=== PATIENT | female | born 1990 | race Caucasian/White ===

== ENCOUNTER 2017-03-05 20:31 | Emergency (ER) | payer BC, OTHER ==
[2017-03-05] MEDS ORDERED: Ondansetron INJ* 2 MG/ML VIAL IV ONE (22:45)
[2017-03-05] MEDS ORDERED: NS 0.9% 1000 ML* 1,000 ML IV ONE (22:45)
[2017-03-05 23:01] LABS: Urine Bacteria Absent (Absent); Urine Bilirubin Negative (Negative); Urine Glucose Negative (Negative); Urine Nitrite Negative (Negative)
--- NOTE | 2017-03-05 23:02 | ED ---
puneet Arevalo Timothy, scribed for Moe Reyes MD on 03/05/17 at 2247 . GI/ HPI - HPI Summary HPI Summary: Hattie To is a 26 yo female presenting to [facility] with intermittent 7/10 peribumbilical abd pain and nausea without vomiting since 02/22/17. Pt believes she may have urinary Sx, but cannot pinpoint them. Pt states she presented to her PCP who analyzed her urine, and did not identify UTI. Her PCP recommended that she present to [facility]. She states she has been having spasms in her abdomen and when she attempts to release the spasm she feels like she will urinate. She denies any vaginal Sx including abnormal bleeding or discharge. she states ice relieves her pain and allows her to sleep. Her MHx includes migraine, seizures, syncope, childhood asthma, chronic bronchitis, PNA, scoliosis, anxiety, and anemia. Her LNMP just finished. - History of Current Complaint Chief Complaint: EDAbdPain Time Seen by Provider: 03/05/17 22:40 Stated Complaint: ABD PAIN Hx Obtained From: Patient Onset/Duration: Started Days Ago, Still Present Timing: Constant Severity: Moderate Current Severity: Moderate Pain Intensity: 7 Location of Pain: Umbilical Associated Signs and Symptoms: Positive: Nausea, Abdominal Pain, Other: - urinary Sx, unspecified. Negative: Vomiting Alleviating Factor(s): Ice - Allergy/Home Medications Allergies/Adverse Reactions: Allergies Allergy/AdvReac Type Severity Reaction Status Date / Time Gabapentin Allergy See Comment Verified 01/03/16 13:26 Latex Allergy Rash Verified 01/03/16 13:26 Sulfa Antibiotics Allergy Rash Verified 01/03/16 13:26 PMH/Surg Hx/FS Hx/Imm Hx Endocrine/Hematology History: Reports: Hx Anemia Denies: Hx Anticoagulant Therapy, Hx Diabetes, Hx Thyroid Disease Cardiovascular History: Reports: Hx Syncope Denies: Hx Hypertension, Hx Pacemaker/ICD Respiratory History: Reports: Hx Asthma - as a child, Hx Chronic Bronchitis, Hx Pneumonia Denies: Hx Chronic Obstructive Pulmonary Disease (COPD) GI History: Denies: Hx Ulcer History: Denies: Hx Renal Disease Musculoskeletal History: Reports: Hx Back Problems, Hx Scoliosis - SX W/ RODS 1.5 WKS AGO Sensory History: Denies: Hx Hearing Aid Neurological History: Reports: Hx Migraine, Hx Seizures Denies: Hx Dementia Psychiatric History: Reports: Hx Anxiety Denies: Hx Panic Disorder, Hx Substance Abuse - Surgical History Surgery Procedure, Year, and Place: Spinal Fusion (for severe scoliosis, entire spine) 2011; Removed Spinal Hardware 09/2014; Tonsillectomy 1992; [place] Teeth Extraction 2011 - Immunization History Date of Influenza Vaccine: nks Infectious Disease History: No Infectious Disease History: Denies: Hx Hepatitis, Hx Human Immunodeficiency Virus (HIV), Traveled Outside the [place] in Last 30 Days - Family History Known Family History: Positive: Cardiac Disease, Hypertension, Diabetes - Social History Alcohol Use: Occasionally Substance Use Type: Reports: None Smoking Status (MU): Never Smoked Tobacco Review of Systems Constitutional: Negative Eyes: Negative ENT: Negative Cardiovascular: Negative Respiratory: Negative Positive: Abdominal Pain, Nausea. Negative: Vomiting Positive: see HPI, other - unspecified. Negative: discharge, hematuria Musculoskeletal: Negative Skin: Negative Neurological: Negative Psychological: Normal All Other Systems Reviewed And Are Negative: Yes Physical Exam Triage Information Reviewed: Yes Vital Signs On Initial Exam: Initial Vitals Temp Pulse Resp BP Pulse Ox 98.2 F 98 15 141/83 100 03/05/17 20:42 03/05/17 20:42 03/05/17 20:42 03/05/17 20:42 03/05/17 20:42 Vital Signs Reviewed: Yes Appearance: Positive: Well-Appearing, No Pain Distress Skin: Positive: Warm Head/Face: Positive: Normal Head/Face Inspection Eyes: Positive: TRISTIAN ENT: Positive: Hearing grossly normal Neck: Positive: Supple Respiratory/Lung Sounds: Positive: Breath Sounds Present Cardiovascular: Positive: RRR Abdomen Description: Positive: No Organomegaly, Soft, Other: - mild lower abd tenderness Bowel Sounds: Positive: Present Musculoskeletal: Positive: Strength/ROM Intact Neurological: Positive: Alert, Oriented to Person Place, Time Diagnostics - Vital Signs Vital Signs Temp Pulse Resp BP Pulse Ox 03/05/17 21:39 97.9 F 88 14 116/68 100 03/05/17 20:44 98.2 F 101 15 141/83 100 03/05/17 20:42 98.2 F 98 15 141/83 100 - Laboratory Result Diagrams: 03/05/17 23:30 03/05/17 23:30 Lab Statement: Any lab studies that have been ordered have been reviewed, and results considered in the medical decision making process. - CT A/P CT Interpretation: No Acute Changes - Spinal fixation rods noted over the thoracic and lumbar spine. There is no free air. Likely incidental 1 cm cyst noted in the right lobe of the liver. There are no obivous gallstones. There is no hydronephrosis. There are no renal calculi. There is a moderate amount of stool noted in the colon. There is no evidence of intestinal obstruction. The appendix is not identified. There is no pericecal or RLQ inflammatory process. Urinary bladder is partially decompressed. There are no bladder calculi. The uterus is retroverted. Small cul-de-sac effusion noted. CT Interpretation Completed By: Radiologist - imaging donation worker Re-Evaluation - Re-Evaluation First Eval Re-Evaluation Time: 02:28 Change: Improved Comment: Pt was informed of lab and imaging studies, Pt is agreeable to be discharged. GIGU Course/Dx - Course Assessment/Plan: Hattie Huddleston is a 26 yo female presenting to [facility] with intermittent 7/10 periumbilical abd pain with nausea without vomiting since . She is not requesting pain medication at this time. In the ED she was given IV fluids and Zofran to control her nausea. Her CT A/P suggested no acute disease. After clinical examination and review of her CT A/P and lab work, she will be discharged home with abdominal pain and appropriate instructions. - Diagnoses Provider Diagnoses: Abdominal pain Discharge - Discharge Plan Condition: Stable Disposition: HOME Patient Education Materials: Diet for Ulcers and Gastritis (ED), Acute Abdominal Pain (ED) Referrals: No Primary Care Phys,NOPCP [Primary Care Provider] - Rivas Barnard MD [Medical Doctor] - 2 Days Additional Instructions: Please follow up with Dr. Barnard regarding your visit to the emergency department today. Return to the emergency department with any new or recurring symptoms. The documentation as recorded by the puneet simms Timothy accurately reflects the service I personally performed and the decisions made by , Moe Reyes MD.
[2017-03-06] LABS: Hematocrit 40 % (35-47); Hemoglobin 13.6 g/dl (12.0-16.0); Mean Corpuscular HGB Conc 34 g/dl (31-36); Mean Corpuscular Hemoglobin 31 pg (27-31); Mean Corpuscular Volume 93 fL (80-97); Mean Platelet Volume 8 um3 (7.4-10.4); Red Blood Count 4.35 10^6/ul (4.0-5.4); Red Cell Distribution Width 13 % (10.5-15); White Blood Count 4.6 10^3/ul (3.5-10.8)
[2017-03-06 00:01] LABS: ALT 10 U/L (7-52); AST 15 U/L (13-39); Albumin 4.5 g/dL (3.2-5.2); Alkaline Phosphatase 50 U/L (34-104); Anion Gap 6 mmol/L (2-11); Blood Urea Nitrogen 12 mg/dL (6-24); C Reactive Protein 1.01 mg/L (< 5.00); CO2 Carbon Dioxide 28 mmol/L (22-32); Calcium 9.7 mg/dL (8.6-10.3); Chloride 105 mmol/L (101-111); EGFR African American 146.9 (>60); EGFR Non-African American 114.2 (>60); Globulin 2.7 g/dL (2-4); Glucose 86 mg/dL (70-100); Lipase 20 U/L (11.0-82.0); Potassium 3.4 mmol/L (3.5-5.0); Sodium 139 mmol/L (133-145); Total Protein 7.2 g/dL (6.4-8.9)
[2017-03-06] MEDS ORDERED: Iohexol 300* (CONTRAST) 10 ML SDV IV ONE (00:33)
[2017-03-06 02:41] VITALS: BP 110/68
--- NOTE | 2017-03-06 07:47 | RAD ---
INDICATION: Abdominal pain COMPARISON: None TECHNIQUE: Axial source images were obtained from the hemidiaphragms to the symphysis pubis following administration of oral and intravenous contrast. 80 mL Omnipaque 300 was utilized. Coronal and sagittal reconstructed images were acquired. The images are degraded by the presence of Ansari. Lung bases: The lung bases are clear. Liver: The liver is normal in size. There are no masses. There is no ductal dilatation. Gallbladder: There are no calcified gallstones. There is no evidence of wall thickening or pericholecystic fluid. Spleen: The spleen is normal in size. There are no masses. Pancreas: There is no focal pancreatic mass or ductal dilatation. Adrenal glands: Very limited evaluation. No masses identified. Kidneys: No gross abnormalities. Prompt perfusion and excretion. Limited evaluation due to beam hardening artifact. Adenopathy: There is no evidence of adenopathy by size criteria. Fluid collections: There is small amount fluid in the cul-de-sac. Vessels:There are no significant atherosclerotic changes involving the aorta. There is no focal aneurysm. The iliac vessels are normal in caliber. The IVC appears normal. GI tract: There are no acute CT bowel findings. There is no obstruction. The stomach and small bowel appear normal. The lower GI tract is normal. The cecum, ileocecal valve, and terminal ileum appear normal. The appendix is not visualized. There is no pericecal inflammatory change. Pelvic organs: The uterus and adnexa appear normal Bladder: There are no bladder masses. Abdominal and pelvic soft tissues: The extraperitoneal abdominal and pelvic soft tissues appear normal.. Osseous structures: Scoliotic deformity with presence of Ansari rods. Other: None IMPRESSION: Mildly Limited examination due to artifact from Ansari rods. No mass or inflammatory changes. Nonvisualization of the appendix. Small amount of free fluid in the cul-de-sac may be physiologic in origin.
== END 2017-03-06 02:39 | disposition home or self-care (01) ==
LOC: ED 20:31
DX: R10.9 Unspecified abdominal pain (principal); R11.0 Nausea
CPT/HCPCS: 36415; 74177; 80053; 81003; 81015; 83605; 83690; 83735; 84702; 85025; 86140; 96374; 99282; J2405; Q9967

== ENCOUNTER 2017-06-26 19:41 | Emergency (ER) | payer OTHER ==
[2017-06-26] MEDS ORDERED: ceFAZolin 1 GM ADVAN(*) 1 GM in NS 0.9% 50 ML* 50 ML IVPB ONE (21:02)
--- NOTE | 2017-06-26 21:45 | RAD ---
INDICATION: Back pain COMPARISON: CT lumbar spine September 01, 2015 TECHNIQUE: Noncontrast axial source images was performed from the thoracolumbar junction to the sacrum. Coronal and and sagittal reformatted images were generated. FINDINGS: Vertebrae: There is no fracture or acute focal bony lesion. There is Ansari katie placement. The radiographic appearance unchanged. There is no evidence of hardware failure. Alignment: There is minor levoscoliosis, unchanged. Central Canal: Evaluation of the central and exiting nerve roots is very limited due to beam hardening artifact. Soft tissues: Limited evaluation. Tubal soft tissues due to beam hardening artifact. Other: None IMPRESSION: There is Ansari katie placement which produces significant beam hardening artifact. There are no acute bony findings.
--- NOTE | 2017-06-26 22:26 | ED ---
Back Pain - HPI Summary HPI Summary: 27F presents with acute on chronic back pain. She states the pain recently has been going down right leg and has inc in intensity which is new. She has been taking lyrica but stopped mobic because was causing urinary retention. She denies any loss of bowel or bladder or saddle anaesthesia. She has multiple rods placed in her back from multiple surgeries. She is currently seeing an ortho doctor from [facility] who is suppose to go nerve conduction studies. She does not want any new medication. - History of Current Complaint Chief Complaint: EDBackInjuryPain Stated Complaint: RIGHT LEG PAIN Time Seen by Provider: 06/26/17 20:43 Hx Last Menstrual Period: 08/14/15 Pain Intensity: 10 - Allergies/Home Medications Allergies/Adverse Reactions: Allergies Allergy/AdvReac Type Severity Reaction Status Date / Time Gabapentin Allergy See Comment Verified 06/26/17 19:48 Latex Allergy Rash Verified 06/26/17 19:48 Sulfa Antibiotics Allergy Rash Verified 06/26/17 19:48 PMH/Surg Hx/FS Hx/Imm Hx Endocrine/Hematology History: Reports: Hx Anemia Denies: Hx Anticoagulant Therapy, Hx Diabetes, Hx Thyroid Disease Cardiovascular History: Reports: Hx Syncope Denies: Hx Hypertension, Hx Pacemaker/ICD Respiratory History: Reports: Hx Asthma - as a child, Hx Chronic Bronchitis, Hx Pneumonia Denies: Hx Chronic Obstructive Pulmonary Disease (COPD) GI History: Denies: Hx Ulcer History: Denies: Hx Dialysis, Hx Renal Disease Musculoskeletal History: Reports: Hx Back Problems, Hx Scoliosis - SX W/ RODS 1.5 WKS AGO Sensory History: Denies: Hx Hearing Aid Neurological History: Reports: Hx Migraine, Hx Seizures Denies: Hx Dementia Psychiatric History: Reports: Hx Anxiety Denies: Hx Panic Disorder, Hx Substance Abuse - Surgical History Surgery Procedure, Year, and Place: Spinal Fusion (for severe scoliosis, entire spine) 2011; Removed Spinal Hardware 09/2014; Tonsillectomy 1992; [place] Teeth Extraction 2011 - Immunization History Date of Influenza Vaccine: nks Infectious Disease History: No Infectious Disease History: Denies: Hx Hepatitis, Hx Human Immunodeficiency Virus (HIV), Traveled Outside the [place] in Last 30 Days - Family History Known Family History: Positive: Cardiac Disease, Hypertension, Diabetes - Social History Alcohol Use: Occasionally Substance Use Type: Reports: None Smoking Status (MU): Never Smoked Tobacco Review of Systems Negative: Fever Negative: Chest Pain Negative: Shortness Of Breath Positive: Myalgia - back pain All Other Systems Reviewed And Are Negative: Yes Physical Exam Triage Information Reviewed: Yes Vital Signs On Initial Exam: Initial Vitals Temp Pulse Resp BP Pulse Ox 98.2 F 89 16 122/80 98 06/26/17 19:43 06/26/17 19:43 06/26/17 19:43 06/26/17 19:43 06/26/17 19:43 Vital Signs Reviewed: Yes Appearance: Positive: Well-Appearing Skin: Positive: Warm, Dry Head/Face: Positive: Normal Head/Face Inspection Eyes: Positive: Normal, Conjunctiva Clear Respiratory/Lung Sounds: Positive: Clear to Auscultation, Breath Sounds Present Cardiovascular: Positive: Normal, RRR Musculoskeletal: Positive: Limited @ - back due to pain, Other - tender across back, pos SLR left Diagnostics - Vital Signs Vital Signs Temp Pulse Resp BP Pulse Ox 06/26/17 20:40 98.2 F 89 16 122/80 99 06/26/17 19:43 98.2 F 89 16 122/80 98 - Laboratory Lab Statement: Any lab studies that have been ordered have been reviewed, and results considered in the medical decision making process. Back Pain Course/Dx - Course Course Of Treatment: 27F presents with acute on chronic back pain. She states the pain recently has been going down right leg and has inc in intensity which is new. She has been taking lyrica but stopped mobic because was causing urinary retention. She denies any loss of bowel or bladder or saddle anaesthesia. She has multiple rods placed in her back from multiple surgeries. She is currently seeing an ortho doctor from [facility] who is suppose to go nerve conduction studies. She does not want any new medication. discussed with patient will get CT. CT shows no acute deepa changes. patient understands and agrees with plan. - Diagnoses Differential Diagnosis/HQI/PQRI: Positive: Fracture, Herniated Disc, Strain, Sprain Provider Diagnoses: Back pain Discharge - Discharge Plan Condition: Good Disposition: HOME Patient Education Materials: Back Pain (ED) Referrals: Marcelino LUX,Giles Baker [Primary Care Provider] - Additional Instructions: Follow up with ortho as scheduled Return to ED if develop any new or worsening symptoms
[2017-06-26 22:31] LABS: Urine Bilirubin Negative (Negative); Urine Glucose Negative (Negative); Urine Nitrite Negative (Negative)
[2017-06-26 22:36] VITALS: BP 127/84
== END 2017-06-26 22:36 | disposition home or self-care (01) ==
LOC: ED 19:41
DX: M54.9 Dorsalgia, unspecified (principal); M79.604 Pain in right leg
CPT/HCPCS: 72131; 81003; 99282

== ENCOUNTER 2017-07-20 09:19 | Emergency (ER) | payer OTHER ==
[2017-07-20 10:26] LABS: Hematocrit 40 % (35-47); Hemoglobin 13.7 g/dl (12.0-16.0); Mean Corpuscular HGB Conc 34 g/dl (31-36); Mean Corpuscular Hemoglobin 32 pg (27-31); Mean Corpuscular Volume 94 fL (80-97); Mean Platelet Volume 8 um3 (7.4-10.4); Red Cell Distribution Width 12 % (10.5-15); White Blood Count 3.9 10^3/ul (3.5-10.8)
--- NOTE | 2017-07-20 10:29 | ED ---
- HPI Summary HPI Summary: 27 female presents to ED with complaints of vaginal bleeding and some mild lower abdominal cramping that began this morning around 7am. Patient states she is 6 weeks . She had a positive blood test. States the bleeding is worse when urinating and admits to clots. "Feels like her period". Has not soaked through 1 pad since 7am yet. Denies any other discharge or symptoms. States she has not been on control or been taking precautions for 7 years and has never been . No known conditions of being infertile or reproductive issues. Admits to having bladder issues (spasms, burning, frequency ) that have been worked up by urologist without known cause. Had symptoms yesterday of bladder issues. Has been taking tylenol for pain and discomfort in replace of her lyrica and meloxicam that she used to take daily for her chronic back problems. PMHx includes back fusion from severe scoliosis but no other medical problems. Denies feeling lightheaded, dizzy or no radiation of abdominal pain. OBGYN: rosa kevin. - History of Current Complaint Chief Complaint: EDVaginalBleeding Stated Complaint: 6WKS PREG/VAG BLEEDING Time Seen by Provider: 07/20/17 09:31 Hx Obtained From: Patient Chief Complaint: Concern for Embryonic Dem, Pain, Vaginal Bleeding Onset/Duration: Started Hours Ago - 7am, Still Present Timing: Constant Severity: Mild Current Severity: Mild Pain Intensity: 2 Location of Pain: Suprapubic Character: Cramping Aggravating Factors: Urination Alleviating Factors: Nothing Associated Signs and Symptoms: Positive: Vaginal Bleeding or Discharge - Assessment Hx Now: Yes Vaginal Bleeding Amount: Medium History of STI/STD: No - Risk Factors Ovarian Torsion Risk Factor: Reproductive Age - Allergies/Home Medications Allergies/Adverse Reactions: Allergies Allergy/AdvReac Type Severity Reaction Status Date / Time Gabapentin Allergy See Comment Verified 07/20/17 09:26 Latex Allergy Rash Verified 07/20/17 09:26 Sulfa Antibiotics Allergy Rash Verified 07/20/17 09:26 PMH/Surg Hx/FS Hx/Imm Hx Endocrine/Hematology History: Reports: Hx Anemia Denies: Hx Anticoagulant Therapy, Hx Diabetes, Hx Thyroid Disease Cardiovascular History: Reports: Hx Syncope Denies: Hx Hypertension, Hx Pacemaker/ICD Respiratory History: Reports: Hx Asthma - as a child, Hx Chronic Bronchitis, Hx Pneumonia Denies: Hx Chronic Obstructive Pulmonary Disease (COPD) GI History: Denies: Hx Ulcer History: Denies: Hx Dialysis, Hx Renal Disease Musculoskeletal History: Reports: Hx Back Problems, Hx Scoliosis - SX W/ RODS 1.5 WKS AGO Sensory History: Denies: Hx Hearing Aid Neurological History: Reports: Hx Migraine, Hx Seizures Denies: Hx Dementia Psychiatric History: Reports: Hx Anxiety Denies: Hx Panic Disorder, Hx Substance Abuse - Surgical History Surgery Procedure, Year, and Place: Spinal Fusion (for severe scoliosis, entire spine) 2011; Removed Spinal Hardware 09/2014; Tonsillectomy 1992; [place] Teeth Extraction 2011 - Immunization History Date of Influenza Vaccine: nks Immunizations Up to Date: Yes Infectious Disease History: Denies: Hx Hepatitis, Hx Human Immunodeficiency Virus (HIV), Traveled Outside the [place] in Last 30 Days - Family History Known Family History: Positive: Cardiac Disease, Hypertension, Diabetes - Social History Alcohol Use: Occasionally Substance Use Type: Reports: None Smoking Status (MU): Never Smoked Tobacco Review of Systems Constitutional: Negative Cardiovascular: Negative Respiratory: Negative Positive: Abdominal Pain Positive: other - vaginal bleeding Musculoskeletal: Negative All Other Systems Reviewed And Are Negative: Yes Physical Exam - Physical Exam Triage Information Reviewed: Yes Vital Signs On Initial Exam: temp: 98.3 HR:87 BP: 141/80 O2:99 Resp:16 Vital Signs Reviewed: Yes Appearance: Positive: Well-Appearing - appears sad, tearful, No Pain Distress, Well-Nourished Skin: Positive: Warm, Skin Color Reflects Adequate Perfusion, Dry. Negative: Cold, Numb, Cyanosis @, Pale, Erythema @ Head/Face: Positive: Normal Head/Face Inspection Eyes: Positive: EOMI, TRISTIAN, Conjunctiva Clear ENT: Positive: Hearing grossly normal, Pharynx normal Neck: Positive: Supple, Nontender Respiratory/Lung Sounds: Positive: Clear to Auscultation, Breath Sounds Present. Negative: Rales, Rhonchi, Wheezes Cardiovascular: Positive: Normal, RRR, Pulses are Symmetrical in both Upper and Lower Extremities. Negative: Murmur, Rub Abdomen Description: Positive: No Organomegaly, Soft, Other: - suprapubic tenderness on palpatinon, mild discomfort. patient deferred pelvic exam due to heavy bleeding and discomfort. Negative: Bruit, CVA Tenderness (R), CVA Tenderness (L), Distended, Guarding, McBurney's Point Tenderness, Peritoneal Signs, Pulsatile Mass Bowel Sounds: Positive: Present Musculoskeletal: Positive: Normal, Strength/ROM Intact. Negative: Pain @ Neurological: Positive: Normal, Sensory/Motor Intact, Alert, Oriented to Person Place, Time Psychiatric: Positive: Normal Diagnostics - Vital Signs Vital Signs Temp Pulse Resp BP Pulse Ox 07/20/17 09:33 98.3 F 72 18 118/63 96 07/20/17 09:22 98.3 F 87 16 141/80 99 - Laboratory Result Diagrams: 07/20/17 10:15 07/20/17 10:15 Lab Statement: Any lab studies that have been ordered have been reviewed, and results considered in the medical decision making process. - Ultrasound No standard instances Ultrasound Interpretation: Positive (See Comments) - NO INTRAUTERINE GESTATION IS IDENTIFIED. THE DIFFERENTIAL INCLUDES EARLY INTRAUTERINE GESTATION, MISSED , OR ECTOPIC . RECOMMEND CORRELATION WITH SERIAL BETA-HCG LEVELS AND FOLLOW-UP IMAGING. 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 no need for pain management at this time, she is comfortable, patient felt ok. blood work, HCG, and U/S obtained. appears patient is suffering from a missed . patient states positive HCG level was taken at PCP 4 days ago and in normal range. educated on miscarriages, use of pads and follow up with OBGYN to repeats US and HCG. Patient requested OCP however encourage to have repeat US and HCG with OBGYN before beginning. Patient deferred pelvic exam. may continue tylenol for pain and discomfort. Aware of worsening signs and symptoms. - Differential Diagnosis/HQI/PQRI: Spontaneous , Threatened , Ectopic , Intrauterine , UTI, Vaginal Bleeding - Diagnoses Provider Diagnoses: Vaginal bleeding in patient at less than 20 weeks gestation, Miscarriage Discharge - Discharge Plan Condition: Stable Disposition: HOME Patient Education Materials: Miscarriage (ED) Referrals: Marcelino LUX,Giles Baker [Primary Care Provider] - Additional Instructions: Please follow up for repeat HCG and ultrasound at OBGYN or PCP. Continue use of tylenol for pain. Also recommend use of heating pads. Continue use of pads for bleeding. Drink plenty of fluids and get plenty of rest. Recommend being around supportive family members and friends to help you through this. If you have worsening signs and symptoms such as lightheaded, weakness, increased intensity of pain that is unbearable or hemorrhaging please seek medical attention immediately.
[2017-07-20 10:41] LABS: Albumin 4.6 g/dL (3.2-5.2); BUN/Creatinine Ratio 17.7 (8-20); Calcium 10.2 mg/dL (8.6-10.3); EGFR African American 148.5 (>60); EGFR Non-African American 115.5 (>60); Globulin 2.5 g/dL (2-4); Total Bilirubin 0.7 mg/dL (0.2-1.0); Total Protein 7.1 g/dL (6.4-8.9)
--- NOTE | 2017-07-20 11:28 | RAD ---
HISTORY: Abdominal cramping, vaginal bleeding, hCG level of 10 COMPARISONS: None TECHNIQUE: Multiple transverse and longitudinal ultrasound images were obtained of the pelvis using grayscale and color Doppler imaging using the endovaginal transducer. FINDINGS: UTERUS: The uterus is normal in shape, size, contour, and echotexture. Cervical nabothian cysts are noted. ENDOMETRIUM: The endometrial stripe is smooth. The endometrium measures 1.1 cm in thickness. No intrauterine gestation is identified. CUL-DE-SAC: There is a small amount of simple fluid within the cul-de-sac. This may be physiologic in a reproductive age female. RIGHT OVARY: The right ovary measures 2.7 x 1.5 x 2.5 cm. A corpus luteum body is noted. LEFT OVARY: The left ovary measures 2.2 x 1.8 x 2.4 cm. BLADDER: The bladder is not well visualized. OTHER: None IMPRESSION: NO INTRAUTERINE GESTATION IS IDENTIFIED. THE DIFFERENTIAL INCLUDES EARLY INTRAUTERINE GESTATION, MISSED , OR ECTOPIC . RECOMMEND CORRELATION WITH SERIAL BETA-HCG LEVELS AND FOLLOW-UP IMAGING.
[2017-07-20 13:29] VITALS: BP 101/63
== END 2017-07-20 13:28 | disposition home or self-care (01) ==
LOC: ED 09:19
DX: O03.9 Complete or unspecified spontaneous abortion without complication (principal); Z88.2 Allergy status to sulfonamides
CPT/HCPCS: 36415; 76817; 80053; 83605; 84702; 85025; 85610; 85730; 99283

== ENCOUNTER 2018-09-25 14:03 | Emergency (ER) | payer MEDICARE, OTHER ==
[2018-09-25 15:20] VITALS: BP 144/50
--- NOTE | 2018-09-25 17:34 | UC ---
Complaint Female HPI - HPI Summary HPI Summary: Patient has a history of chronic pelvic pain. 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 States that for the past 2 days has had a different kind of urinary burning and persistent pelvic muscle spasm. No fever. No back pain more than her baseline. No nausea. States her periods are very heavy but regular. She does complain of painful intercourse. Has been with the same male partner for over 8 years. Unknown if any fertility issues as they have not tried to become . - History Of Current Complaint Chief Complaint: UCGU Stated Complaint: URINARY ISSUE Time Seen by Provider: 09/25/18 17:05 Hx Obtained From: Patient Hx Last Menstrual Period: [id number] Onset/Duration: Gradual Onset, Lasting Days, Still Present Timing: Constant Severity Initially: Moderate Severity Currently: Moderate Pain Intensity: 3 Pain Scale Used: 0-10 Numeric Character: Burning Aggravating Factor(s): Urination Alleviating Factor(s): Nothing Associated Signs And Symptoms: Positive: Back Pain. Negative: Vaginal Bleeding/ Discharge, Vaginal Discharge - Allergies/Home Medications Allergies/Adverse Reactions: Allergies Allergy/AdvReac Type Severity Reaction Status Date / Time MS Gabapentin [Gabapentin] Allergy See Comment Verified 07/20/17 09:26 MS Latex [Latex] Allergy Rash Verified 07/20/17 09:26 MS Sulfa Antibiotics Allergy Rash Verified 07/20/17 09:26 [Sulfa Antibiotics] Home Medications: Home Medications L.acidoph,Paracasei, B.lactis [Probiotic] 1 each PO DAILY 09/25/18 [History Confirmed 09/25/18] Multivitamin [Multivitamins] 1 cap PO DAILY 09/25/18 [History Confirmed 09/25/18 ] PMH/Surg Hx/FS Hx/Imm Hx Respiratory History: Asthma Other GI/ History: CHRONIC PELVIC PAIN Neurological History: Migraine Other History Of: Negative For: Anticoagulant Therapy - Surgical History Surgical History: Yes Surgery Procedure, Year, and Place: Spinal Fusion (for severe scoliosis, entire spine) 2011; Removed Spinal Hardware 09/2014; Tonsillectomy 1992; [place] Teeth Extraction 2011 - Family History Known Family History: Positive: Cardiac Disease, Hypertension, Diabetes - Social History Alcohol Use: None Substance Use Type: None Smoking Status (MU): Never Smoked Tobacco Review of Systems Constitutional: Negative Respiratory: Negative Cardiovascular: Negative Gastrointestinal: Abdominal Pain Genitourinary: Dysuria, Other - pelvic muscle spasm All Other Systems Reviewed And Are Negative: Yes Physical Exam Triage Information Reviewed: Yes Appearance: Well-Appearing, No Pain Distress, Well-Nourished Vital Signs: Initial Vital Signs Temp 98.8 F 09/25/18 15:14 Pulse 91 09/25/18 15:14 Resp 16 09/25/18 15:14 BP 144/50 09/25/18 15:14 Pulse Ox 100 09/25/18 15:14 Laboratory Tests 09/25/18 15:40 POC Urine Color Yellow POC Urine Clarity Clear POC Urine pH 6.5 POC Ur Specif [place] <= 1.005 L POC Urine Protein Negative POC Ur Glucose (UA) Negative POC Urine Ketones Negative POC Urine Blood Negative POC Urine Nitrite Negative POC Urine Bilirubin Negative POC Urine Urobilinogen 0.2 POC U Leukocyte Esteras Negative Vital Signs Reviewed: Yes Eyes: Positive: Conjunctiva Clear ENT: Positive: Hearing grossly normal Neck: Positive: Supple Respiratory: Positive: No respiratory distress, No accessory muscle use Cardiovascular: Positive: Pulses Normal Abdomen Description: Positive: Soft, Other: - suprapubic tenderness. Negative: CVA Tenderness (R), CVA Tenderness (L), Distended, Guarding Pelvic Exam: Positive: External Exam Normal, Speculum Exam Normal - NABOTHIAN CYSTS ON CERVIX, No Cerv. Motion Tender, No Masses, Discharge - MODERATE THICK WHITE D/C. NO ODOR Musculoskeletal: Positive: No Edema Neurological: Positive: Alert Psychological: Positive: Age Appropriate Behavior Skin: Negative: rashes Complaint Female Dx - Differential Dx/Diagnosis Provider Diagnoses: CHRONIC PELVIC PAIN Discharge - Sign-Out/Discharge Documenting (check all that apply): Patient Departure All imaging exams completed and their final reports reviewed: No Studies - Discharge Plan Condition: Stable Disposition: HOME Patient Education Materials: Pelvic Pain in Women (ED) Referrals: Marcelino LUX,Giles Baker [Primary Care Provider] - If Needed Additional Instructions: UNCLEAR ETIOLOGY OF YOUR SYMPTOMS TODAY. URINE TEST WAS NEGATIVE FOR INFECTION. WE WILL SEND IT FOR FULL CULTURE TO ENSURE THERE IS NO INFECTIOUS PROCESS THERE. PELVIC EXAM WAS ALSO UNREMARKABLE. SWABS SENT FOR VAGINITIS. WE WILL CALL YOU IF ANY ABNORMAL RESULTS. I RECOMMEND YOU FOLLOW-UP WITH YOUR URO-UNDER SEAL OPERATOR FOR FURTHER EVALUATION OF YOUR SYMPTOMS. CONSIDER DIRECTLY ADDRESSING POSSIBILITY OF ENDOMETRIOSIS. GO TO THE ED WITHOUT FAIL IF YOU DEVELOP WORSENING PAIN, FEVER, AILIN BLOOD IN THE URINE OR ANY OTHER CONCERNING SYMPTOMS. - Billing Disposition and Condition Condition: STABLE Disposition: Home
== END 2018-09-25 18:00 | disposition home or self-care (01) ==
LOC: UCEAST 14:03
DX: R10.2 Pelvic and perineal pain (principal); G89.29 Other chronic pain; R30.9 Painful micturition, unspecified; Z91.040 Latex allergy status; Z88.2 Allergy status to sulfonamides; Z88.8 Allergy status to other drugs, medicaments and biological substances
CPT/HCPCS: 81003; 87086; 87480; 87510; 87660; 99212; G0463

== ENCOUNTER → 2019-01-29 15:43 | Emergency (ER) | payer MEDICAID, MEDICARE ==
--- NOTE | 2019-01-29 16:59 | ED ---
Back Pain - HPI Summary HPI Summary: Pt. is a 28 y.o female who presents to the ER for low back pain x several days. Pt. notes she has a hx of scoliosis with surgical correction. Pt. states she was having some increased low back this week and saw a chiropractor. Pt. states the night of manipulation she developed worsening low back pain. Pt. states pain is as painful as after her remote surgery. Pain radiates into left leg. Denies numbness, tingling or weakness, bowel or bladder incontinence or retention. Denies decreased sensation to rectal region. Pt. has been taking motrin and tylenol. She has been apply heat and ice. Pt. also notes that she developed a rash to her left lower back after injury. No other past medical hx. Sxs are moderate in severity. Movement makes sxs worse. Nothing makes sxs better. - History of Current Complaint Chief Complaint: EDBackInjuryPain Stated Complaint: BACK PAIN PER PT Time Seen by Provider: 01/29/19 16:31 Hx Obtained From: Patient Hx Last Menstrual Period: [id number] Pain Intensity: 8 - Allergies/Home Medications Allergies/Adverse Reactions: Allergies Allergy/AdvReac Type Severity Reaction Status Date / Time MS Gabapentin [Gabapentin] Allergy See Comment Verified 01/29/19 15:49 MS Latex [Latex] Allergy Rash Verified 01/29/19 15:49 MS Sulfa Antibiotics Allergy Rash Verified 01/29/19 15:49 [Sulfa Antibiotics] Home Medications: Home Medications Meloxicam 1 tab PO DAILY PRN 01/29/19 [History Confirmed 01/29/19] PMH/Surg Hx/FS Hx/Imm Hx Previously Healthy: Yes Endocrine/Hematology History: Reports: Hx Anemia Denies: Hx Anticoagulant Therapy, Hx Diabetes, Hx Thyroid Disease Cardiovascular History: Reports: Hx Syncope Denies: Hx Hypertension, Hx Pacemaker/ICD Respiratory History: Reports: Hx Asthma - as a child, Hx Chronic Bronchitis, Hx Pneumonia Denies: Hx Chronic Obstructive Pulmonary Disease (COPD) GI History: Denies: Hx Ulcer History: Denies: Hx Dialysis, Hx Renal Disease Musculoskeletal History: Reports: Hx Back Problems, Hx Scoliosis - SX W/ RODS 1.5 WKS AGO Sensory History: Denies: Hx Hearing Aid Neurological History: Reports: Hx Migraine, Hx Seizures Denies: Hx Dementia Psychiatric History: Reports: Hx Anxiety Denies: Hx Panic Disorder, Hx Substance Abuse - Surgical History Surgery Procedure, Year, and Place: Spinal Fusion (for severe scoliosis, entire spine) 2011; Removed Spinal Hardware 09/2014; Tonsillectomy 1992; [place] Teeth Extraction 2011 - Immunization History Date of Influenza Vaccine: nks Infectious Disease History: No Infectious Disease History: Denies: Hx Hepatitis, Hx Human Immunodeficiency Virus (HIV), Traveled Outside the [place] in Last 30 Days - Family History Known Family History: Positive: Cardiac Disease, Hypertension, Diabetes - Social History Occupation: Disabled Lives: With Family Alcohol Use: None Substance Use Type: Reports: None Smoking Status (MU): Never Smoked Tobacco Review of Systems Constitutional: Negative Negative: Fever, Chills Gastrointestinal: Negative Negative: Abdominal Pain Genitourinary: Negative Negative: burning, dysuria, flank pain Positive: Other - low back pain Positive: Rash Neurological: Negative Negative: Weakness, Paresthesia, Numbness All Other Systems Reviewed And Are Negative: Yes Physical Exam Triage Information Reviewed: Yes Vital Signs On Initial Exam: Initial Vitals Temp Pulse Resp BP Pulse Ox 99.0 F 106 16 125/69 100 01/29/19 15:46 01/29/19 15:46 01/29/19 15:46 01/29/19 15:46 01/29/19 15:46 Vital Signs Reviewed: Yes Appearance: Positive: Well-Appearing - Pt. sitting on bed, appears uncomfortable but notoxic. SO present. Skin: Positive: Warm, Dry Head/Face: Positive: Normal Head/Face Inspection Eyes: Positive: Normal, EOMI Neck: Positive: Supple Musculoskeletal: Positive: Other - 5/5 strength in bilateral LEs with flexion and dorsiflexion. Postive straight leg bilaterally. Midline lumbar tenderness noted. Noted over left lateral low back there is a faint pinpoint erythematous papular rash. It is not painful to touch. It does not ta. No vesicles or blisters. Does not appear to be petechiae. Neurological: Positive: Normal, CN Intact II-III Psychiatric: Positive: Affect/Mood Appropriate Diagnostics - Vital Signs Vital Signs Temp Pulse Resp BP Pulse Ox 01/29/19 15:46 99.0 F 106 16 125/69 100 - Laboratory Lab Statement: Any lab studies that have been ordered have been reviewed, and results considered in the medical decision making process. Back Pain Course/Dx - Course Course Of Treatment: Patient presenting for worsening low back pain after manipulation a few days ago. Patient is concerned her hardware may have moved. She is no neurological deficits or evidence of cauda equina syndrome. Patient also has a rash to her left lower back that occurred after injury. Rash appears most consistent with a dermatitis secondary to heating pad. Given history of surgery and recent injury we'll obtain CT scan for further evaluation. CT per radiology: IMPRESSION: Fusion of at least T12-L4 level more superior fusion is likely present and not. imaged. No evidence of definitive bony injury is noted. No spinal canal stenosis is noted. Overall exam appears to be unchanged from previous exam. Results discussed with pt. She notes she has been rotating tylenol and motrin and has been having a very hard time sleeping secondary to pain. Given exacerbation or pain will rx a short course of ultram. Advised to f.u with her ortho. doctor if pain persist. Advised to avoid apply direct heat or ice to back. To return to ER if symptoms change or worsen. pt. understands and agrees wiht plans. - Diagnoses Differential Diagnosis/HQI/PQRI: Positive: Fracture, Herniated Disc, Strain, Sprain Provider Diagnoses: Lumbar strain, Dermatitis, Rash Discharge - Sign-Out/Discharge Documenting (check all that apply): Patient Departure Patient Received Moderate/Deep Sedation with Procedure: No - Discharge Plan Condition: Good Disposition: HOME Prescriptions: traMADol TAB* [Ultram*] 50 mg PO Q6HR PRN #8 tab MDD 4 PRN Reason: Pain Patient Education Materials: Low Back Strain (ED), Dermatitis (ED) Referrals: Giles Benson MD [Primary Care Provider] - Additional Instructions: Schedule a close follow up appointment with your PCP and neurosurgeon Apply over the counter hydrocortisone cream to rash Avoid apply ice or heat over rash or directly to skin Continue rotation of motrin and tylenol Return to ER if symptoms change or worsen - Billing Disposition and Condition Condition: GOOD Disposition: Home
[2019-01-29 18:51] VITALS: BP 115/89
== END | disposition home or self-care (01) ==
LOC: ED 15:43
DX: S39.012A Strain of muscle, fascia and tendon of lower back, initial encounter (principal); M54.2 Cervicalgia; Z88.2 Allergy status to sulfonamides; R55 Syncope and collapse; X58.XXXA Exposure to other specified factors, initial encounter; Y92.9 Unspecified place or not applicable; L30.9 Dermatitis, unspecified; R21 Rash and other nonspecific skin eruption
CPT/HCPCS: 72131; 99282